=== PATIENT | male | born 1970 | race Caucasian/White ===

== ENCOUNTER 2024-05-11 02:27 | Emergency (ER) | payer OTHER ==
[2024-05-11] MEDS ORDERED: Ibuprofen 200 MG TAB ONE (03:37)
== END 2024-05-11 05:25 | disposition home or self-care (01) ==
LOC: NAV ERS 02:27 → EEVIPCON 02:27 → NAV ERS 05:25
DX: S62.314A Displaced fracture of base of fourth metacarpal bone, right hand, initial encounter for closed fracture (principal); S82.832A Other fracture of upper and lower end of left fibula, initial encounter for closed fracture; S01.81XA Laceration without foreign body of other part of head, initial encounter; S93.601A Unspecified sprain of right foot, initial encounter; W18.30XA Fall on same level, unspecified, initial encounter
CPT/HCPCS: 70450